=== PATIENT | male | born 1990 | race Caucasian/White ===

== ENCOUNTER 2021-01-30 07:23 | Outpatient (CLI) | payer BC, SELFPAY ==
[2021-01-30 12:38] LABS: HCT 37.7 % (40.0-50.0); HGB 12.9 g/dL (13.5-17.5); MCH 31.4 pg (27.0-33.0); MCHC 34.2 % (32.0-36.0); MCV 91.7 fL (80-95); MPV 9.6 fL (8.0-11.0); Platelet Count 335 10^3/uL (130-400); RBC 4.11 10^6/uL (4.36-5.78); RDW 12.1 % (11.8-14.1); RDW-SD 41.1 fL; WBC 5.14 10^3/uL (4.4-10.8)
[2021-01-30 12:56] LABS: Hemoglobin A1C 5.5 % (<5.7)
[2021-01-30 14:54] LABS: ALT 20 U/L (16-63); AST 13 U/L (15-37); Albumin 3.7 g/dL (3.4-5.0); Alkaline Phosphatase 47 U/L (46-116); Anion Gap 8.7 mmol/L (3-11); BUN 11 mg/dL (7-18); Bilirubin, Total 0.2 mg/dL (0.2-1.0); CO2 27.3 mmol/L (21.0-32.0); CREATININE 0.9 mg/dL (0.70-1.30); Calcium 9.5 mg/dL (8.5-10.1); Chloride 104 mmol/L (98-107); Glucose 93 mg/dL (74-106); Potassium 4.3 mmol/L (3.5-5.1); Sodium 140 mmol/L (136-145); TSH 1.31 uIU/mL (0.36-3.74); Total Protein 7.2 g/dL (6.4-8.2)
[2021-01-30 21:22] LABS: Calculated LDL 116 mg/dL (<100); Cholesterol 223 mg/dL (<200); HDL Cholesterol 60 mg/dL (40-60); Triglyceride 237 mg/dL (<150)
[2021-02-01 17:54] LABS: Estradiol 236 pg/mL (<40)
[2021-02-05 16:06] LABS: Testosterone, Free 0.11 ng/dL (4.85-19.0); Testosterone, Total 15 ng/dL (240-950)
== END 2021-01-30 07:24 | disposition home or self-care (01) ==
LOC: LBO 07:25
PROVIDERS: PCP Internal Medicine; Visit Provider Internal Medicine
DX: F64.9 Gender identity disorder, unspecified (principal)
CPT/HCPCS: 36415; 80053; 80061; 84402; 84403; 85027; 82670; 83036; 84443